=== PATIENT | male | born 1990 | race Caucasian/White ===

== ENCOUNTER 2017-02-02 11:35 | Day surgery (SDC) | payer BC ==
--- NOTE | 2017-02-01 16:54 | Pre-Procedure Note/Attestation ---
Pre-Procedure Note/Attestation Complete Prior to Procedure Planned Procedure: not applicable Procedure Narrative: 1. Open reduction and internal fixation nasal fracture 2. Septoplasty 3. Submucous resection bilateral inferior turbinates Indications for Procedure Pre-Operative Diagnosis: 1. Nasal fracture 2. Nasal septal deviation 3. Hypertrophied bilateral inferior turbinates. Attestation I attest that I discussed the nature of the procedure; its benefits; risks and complications; and alternatives (and the risks and benefits of such alternatives ), prior to the procedure, with the patient (or the patient's legal representative personal service). I attest that, if there was a reasonable possibility of needing a blood transfusion, the patient (or the patient's legal representative personal service) was given the [place] Department [employer] [facility] standardized written summary, pursuant to the [place] Blood Safety Act ([place] Health and Safety Code # 1645, as amended). I attest that I re-evaluated the patient just prior to the surgery and that there has been no change in the patient's H&P, LALIT MCNAIR Feb 01, 2017 16:54
[2017-02-02] VITALS (9 sets, daily range): BP systolic 128–159; BP diastolic 74–109
[~2017-02-02] VITALS: Ht 180.3 cm; Wt 70.3 kg
--- NOTE | 2017-02-02 00:15 | Pre-op HX & Phy Repo 2 SIG ---
DATE OF ADMISSION: 02/02/2017 DATE OF SURGERY: 02/02/2017. TODAY'S DATE: 02/01/2017. INDICATIONS FOR SURGERY: A 26-year-old male, who had numerous nasal fractures as well as nasal deformity on the anterior part of the nose, but not the tip, septal deviation with fracture and hypertrophied bilateral inferior turbinates. He has both the cosmetic deformity and difficulty breathing through his nose. He has failed nasal steroids and antihistamines. 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 SOCIAL HISTORY: He was a smoker, who stopped on 01/21/2017. He is single. No children. He did have a problem with alcohol. He has been sober four months now. He is an investment businessman and songwriter. FAMILY HISTORY: Unremarkable. PHYSICAL EXAMINATION: VITAL SIGNS: He is 71 inches and 160 pounds. BMI 22.32. Blood pressure 120/80, temperature 98.6 degrees, heart rate 72, and respiratory rate 14. This was done on 01/21/2017. HEENT: Nose: He has an anterior nasal bump. Tip is fine. Septal deviation and hypertrophied right and left inferior turbinates. Mouth: Normal. Ears: Positive light reflex. Normal canals. Eyes: PERRLA, EOMI. CHEST: Clear to A and P. ABDOMEN: Soft and nontender. Normoactive bowel sounds. GENITOURINARY: Not done. It was done by his primary care doctor. No reason to repeat it. EXTREMITIES: Grossly normal. NEUROLOGIC: Cranial nerves II through XII grossly normal. ASSESSMENT AND PLAN: He is a candidate for open reduction and internal fixation nasal fracture, septoplasty, and submucous resection of bilateral inferior turbinates. This has been discussed with the patient and his father on 01/31/2017 and he is given printed pre and postop instructions, Distant for postop and azithromycin Z-Ge for postop. Melvin Mtz M.D. DR: Troy JOB#: [id number] CC:
[~2017-02-02 11:35] MED LIST: Dexamethasone 4mg/ml vial IVP ONE; ceFAZolin sod 1 GM in NS 55 ML IVPB ONE
[2017-02-02] MEDS ORDERED: NKM (12:58)
[2017-02-02] MEDS ORDERED: Cocaine 4% Vial TOPIC ONE (14:19)
[2017-02-02] MEDS ORDERED: Saline Nasal Gel (Ayr) NASAL ONE (14:20)
[2017-02-02] MEDS ORDERED: Bupivacaine w/Epi 0.5% 30ml Vial INJ ONE (14:20)
[2017-02-02] MEDS ORDERED: Lidocaine 1% 10mg/ml/Epi 0.005mg/ml 30ml vial INJ ONE (14:20)
[2017-02-02] MEDS ORDERED: Oxycodone/Acetaminophen 5-325 ORAL PRN (14:30)
[2017-02-02] MEDS ORDERED: Meperidine 25mg/0.5ml Inj IV PRN (14:30)
[2017-02-02] MEDS ORDERED: Metoclopramide 10mg/2ml Inj IVP PRN ×2 (14:30→15:30)
[2017-02-02] MEDS ORDERED: Sterile Water Irrig 1000ml IRRIG ONE (14:30)
[2017-02-02] MEDS ORDERED: Ketorolac 30mg Inj IV PRN (14:30)
[2017-02-02] MEDS ORDERED: Norco 7.5mg/325mg tab ORAL PRN (14:30)
[2017-02-02] MEDS ORDERED: Propofol 10mg/ml 20ml IV ONE (14:30)
[2017-02-02] MEDS ORDERED: LR 1000ml ONE (14:30)
[2017-02-02] MEDS ORDERED: Midazolam 2mg/2ml Inj IVP PRN (14:30)
[2017-02-02] MEDS ORDERED: fentaNYL 100 mcg/2 mL IV PRN (14:30)
[2017-02-02] MEDS ORDERED: DiphenhydrAMINE 50mg/ml Inj IVP PRN (14:30)
[2017-02-02] MEDS ORDERED: Neostigmine 1mg/ml 10ml Inj ONE (14:30)
[2017-02-02] MEDS ORDERED: Lidocaine 1% MPF 10mg/ml 5ml ONE (14:30)
[2017-02-02] MEDS ORDERED: Glycopyrrolate 0.2mg/ml 1ml Vial ONE (14:30)
[2017-02-02] MEDS ORDERED: Norco 5mg/325mg tab ORAL PRN ×2 (14:30→15:30)
[2017-02-02] MEDS ORDERED: LORazepam Inj 2mg/ml 1ml IV PRN (14:30)
[2017-02-02] MEDS ORDERED: Atropine Inj 1mg/10ml Syr IV PRN (14:30)
[2017-02-02] MEDS ORDERED: Nimbex 2mg/ml Inj 10ML IVP ONE (14:30)
[2017-02-02] MEDS ORDERED: Dexamethasone 4mg/ml vial ONE (14:30)
[2017-02-02] MEDS ORDERED: NS Irrig 1000ml ONE (14:30)
[2017-02-02] MEDS ORDERED: Hydromorphone 0.5mg/0.5ml inj IVP PRN (14:30)
[2017-02-02] MEDS ORDERED: Ketorolac 60mg Inj IV PRN (14:30)
[2017-02-02] MEDS ORDERED: LR 1000ml 1,000 ML IVLG SCH (14:30)
--- NOTE | 2017-02-02 14:30 | Anethesia Preoperative Eval ---
Anesthesia Pre-op PMH/ROS General Date of Evaluation: Feb 02, 2017 Time of Evaluation: 14:26 Anesthesiologist: Basilio ASA Score: ASA 1 Mallampati Score Class I : Soft palate, uvula, fauces, pillars visible Class II: Soft palate, uvula, fauces visible Class III: Soft palate, base of uvula visible Class IV: Only hard plate visible Mallampati Classification: Class II Surgeon: Smith Diagnosis: Nasal Fx Surgical Procedure: Septoplasty, SMR, Turbinates Anesthesia History: none Family History: no anesthesia problems Allergies: Coded Allergies: PENICILLINS (Verified Allergy, Intermediate, rash/ hives, 02/02/17) childhood Medications: see eMAR Past Medical History Gastrointestinal/Genitourinary: Reports: GERD, other - Gluten Intolerance Anesthesia Pre-op Phys. Exam Physician Exam Last Vital Signs Date Time Temp Pulse Resp B/P Pulse Ox O2 Delivery O2 Flow Rate FiO2 02/02/17 12:10 97.0 69 20 128/74 98 Room Air Constitutional: NAD Neurologic: CN 2-12 intact Cardiovascular: RRR Respiratory: CTA Gastrointestinal: S/NT/ND Airway Exam Mallampati Score: Class II MO: full ROM: full Teeth: intact Anesthesia Pre-op A/P Risk Assessment & Plan Assessment: ASA 1 Plan: GA, BIS, Glidescope Status Change Before Surgery: No Pre-Antibiotics Dru Gram Ancef IV Given Within 1 Hr of Incision: Yes Time Given: 14:31 Ruben Richmond MD Feb 02, 2017 14:30
--- NOTE | 2017-02-02 15:15 | Immediate Post-Op Evaluation ---
Immediate Post-Op Evalulation Immediate Post-Op Evalulation Procedure: Septoplasty, SMR, Turbinate reduction, Nasal Fx ORIF Date of Evaluation: Feb 02, 2017 Time of Evaluation: 15:50 IV Fluids: 800 LR Blood Products: 0 Estimated Blood Loss: 100 Urinary Output: 0 Blood Pressure Systolic: 151 Blood Pressure Diastolic: 109 Pulse Rate: 87 Respiratory Rate: 16 O2 Sat by Pulse Oximetry: 99 Temperature (Fahrenheit): 97.2 Pain Score (1-10): 2 Nausea: No Vomiting: No Complications 0 Patient Status: awake, reacts, patent, extubated, none Hydration Status: adequate Dru Gram Ancef IV Given Within 1 Hr of Incision: Yes Time Given: 14:31 Ruben Richmond MD Feb 02, 2017 15:15
[2017-02-02] MEDS ORDERED: HYDROmorphone 1mg/ml Carpuject SUBQ PRN (15:30)
--- NOTE | 2017-02-02 15:30 | Brief Operative Note ---
Immediate Post Operative Note Operative Note Pre-op Diagnosis: 1. Nasal fracture 2. Nasal septal deviation 3. Hypertrophied bilateral inferior turbinates. Procedure: 1.ORIF nasal fracture 2.Septoplasty 3. Bilateral SMR inferior turbinates Post-op Diagnosis: same as pre-op Surgeon: Lalit Mcnair Enrollment Specialist: none Additional Surgeons: none Anesthesiologist: Ervin Anesthesia: general Specimen: none Complications: none Condition: stable Estimated Blood Loss: volume - 100cc Drains: none Packing: Stamberger nasal gel Implant(s) used?: No LALIT MCNAIR Feb 02, 2017 15:30
--- NOTE | 2017-02-02 15:35 | Discharge Instructions ---
Discharge Instructions Discharge Instructions Follow up with: Dr. Mcnair next week, pt has appt already Diet: regular Resume Normal Activity?: No Activity: light activity Pneumonia Vaccine: pt refused vaccine Influenza Vaccine (May to Oct): pt refused vaccine Follow Up Orders Pt has printed instructions given to him last week in the office pre op Return to Work/School on: Feb 16, 2017 Special Instructions pt has Rx for norco and A pac already-given to him last week For Surgical Patients Dressing Care: may change For Congestive Heart Failure Reminder Report to your physician any weight gain of 5 pounds or more in one week. LALIT MCNAIR Feb 02, 2017 15:35
--- NOTE | 2017-02-02 15:47 | 48 Hour Post Anesthesia Eval ---
Post Anesthesia Evaluation Procedure: Septoplasty, SMR, Turbinate reduction, Nasal Fx ORIF Date of Evaluation: Feb 02, 2017 Time of Evaluation: 17:42 Blood Pressure Systolic: 122 0: 73 Pulse Rate: 63 Respiratory Rate: 18 Temperature (Fahrenheit): 98.2 O2 Sat by Pulse Oximetry: 99 Airway: patent Nausea: No Vomiting: No Pain Intensity: 2 Hydration Status: adequate Cardiopulmonary Status: Stable Mental Status/LOC: patient returned to baseline Follow-up Care/Observations: 0 Post-Anesthesia Complications: 0 Follow-up care needed: ready to discharge Ruben Richmond MD Feb 02, 2017 15:47
--- NOTE | 2017-02-02 21:30 | Operative Note - Dictated ---
DATE OF OPERATION: 02/02/2017 SURGEON: Melvin Mtz M.D. CARDIOLOGY NURSE PRACTITIONER: None. ANESTHESIOLOGIST: Ruben Richmond M.D. Anesthesia: Oral endotracheal anesthesia as well as 15 mL 50:50 mixture 1% lidocaine in 1:100,000 epinephrine and Marcaine 0.5% with 1:200,000 epinephrine. Additionally, 4 mL of 4% topical cocaine placed on four nasal pledgets two on either nostril accounted for at the end of the case. INDICATION FOR SURGERY: Septal deviation and hypertrophied right inferior turbinate, hypertrophied left inferior turbinate. PREOPERATIVE DIAGNOSIS: Septal deviation and hypertrophied right inferior turbinate, hypertrophied left inferior turbinate. POSTOPERATIVE DIAGNOSIS: Septal deviation and hypertrophied right inferior turbinate, hypertrophied left inferior turbinate. FINDINGS: Septal deviation and hypertrophied right inferior turbinate, hypertrophied left inferior turbinate. PROCEDURE: 1. Open reduction and internal fixation nasal fracture. 2. Septoplasty. 3. Submucous resection right inferior turbinate. 4. Submucous resection left inferior turbinate. TECHNIQUE: The patient was prepped and draped in usual manner via oral endotracheal anesthesia. He was then injected with the aforementioned lidocaine, Marcaine, and epinephrine mixture as well as four nasal pledgets placed two on either nostril. Injections were done after a time-out was performed and all agreed as to the equipment and procedures being done. [place] incision was made on the left side of the septum with a 15 blade. I was able to elevate subperiosteally and subperichondrially with dental elevator on either side of the septum removing the lower 5 mm with a large spur posteriorly. I then proceeded to sew this together the 4-0 plain suture. I made between the cartilage incisions with a 15 blade and elevated with a Frosh scissors over the anterior aspect of the nose. I then proceeded to use a gouge osteotome to remove the bump on the nose. Nose was then placed back into position after I did a partial osteotomy and the lateral osteotomy. A small incision on either anterior-inferior turbinate made with 15 blade. Two passes with radiofrequency needle coated with saline gel 10 seconds setting a 6 each, then outfractured with a [place] elevator. One syringe of Stammberger nasal gel was used for both nostrils, stent was placed on the nose. Mustache dressing was placed. ESTIMATED BLOOD LOSS: 100 mL. COMPLICATIONS: None. DRAINS: None. Melvin Mtz M.D. DR: Gabriella JOB#: [id number] CC: SILVERIO
[2017-02-05] MEDS ORDERED: ceFAZolin sod 1 GM in D5W 55 ML IV ONE (09:00)
== END 2017-02-02 17:38 | disposition home or self-care (01) ==
LOC: SUR 11:35
DX: S02.2XXA Fracture of nasal bones, initial encounter for closed fracture (principal); X58.XXXA Exposure to other specified factors, initial encounter; Y92.89 Other specified places as the place of occurrence of the external cause; Y99.9 Unspecified external cause status; J34.2 Deviated nasal septum; J34.3 Hypertrophy of nasal turbinates; K90.41 Non-celiac gluten sensitivity; Z87.891 Personal history of nicotine dependence; Z88.0 Allergy status to penicillin
CPT/HCPCS: 94003; 94150; J2405; J2710